=== PATIENT | male | born 1970 | race Caucasian/White ===

== ENCOUNTER 2016-11-08 10:56 | Emergency (ER) | payer BC ==
[~2016-11-08] VITALS: Ht 172.7 cm; Wt 134.7 kg
[~2016-11-08 10:56] MED LIST: AFRIN,GENASAL D15 ML BOTH NARES; ALEVE220 M2 PO; FLEXERIL10 MG PO; GLUCOPHAGE XR750 MG PO; GLUCOPHAGE850 MG PO; NASACORT10.8 ML BOTH NARES; PERCOCET 5/31 TABLET PO
[2016-11-08] MEDS ORDERED: XIGDUO XR 5 MG1 EAC1 PO (13:30)
[2016-11-08] MEDS ORDERED: VALIUM5 MG PO (14:10)
[2016-11-08] MEDS ORDERED: PERCOCET 5/31 TABLET PO (14:10)
[2016-11-08] MEDS ORDERED: NAPROSYN500 MG PO (14:10)
[2016-11-08 14:45] VITALS: BP 144/81
== END 2016-11-08 14:46 | disposition home or self-care (01) ==
LOC: EME 10:56
DX: M54.5 Low back pain (principal); E11.9 Type 2 diabetes mellitus without complications; Z79.84 Long term (current) use of oral hypoglycemic drugs
CPT/HCPCS: 72100; 99281; 99284; J1100; J1885; J3010